=== PATIENT | male | born 1960 | race Caucasian/White ===

== ENCOUNTER → 2017-09-24 | Outpatient (CLI) | payer OTHER ==
[~2017-09-24] MED LIST: ADDERALL 20 MG20 M1 PO; ASPIR 8181 MG PO; ATIVAN0.5 MG PO; EFFIENT10 MG PO; KEFLEX500 MG PO; LIPITOR10 MG PO; MOBIC15 MG PO; NORCO 5-325 TA1 EACH PO
--- NOTE | 2017-09-24 16:50 | 2DMMODE ---
[place] [address] 2 D/M-MODE ECHOCARDIOGRAM Name: GUERA KHAN Room: [facility]#: [id number] Admission: 09/24/17 Attend Phys: Nba Matos Discharge: Date of : 64 Date of Service: 09/24/17 1649 Report #: [id number] THIS REPORT FOR: //name// APPROVED REPORT Study performed: 09/24/2017 10:07:08 EXAM: Comprehensive 2D, Doppler, and color-flow Echocardiogram Patient Location: Out-Patient Status: routine BSA: 2.07 HR: 71 bpm BP: 122/78 mmHg Other Information Study Quality: Good Indications CAD 2D Dimensions LVEF(%): 75.23 (>50%) IVSd: 12.73 (7-11mm) LVOT Diam: 20.79 (18-24mm) LVDd: 45.90 mm PWd: 11.21 (7-11mm) Ascending Ao: 34.34 (22-36mm) LVDs: 25.73 (25-40mm) Aortic Root: 34.73 mm Tolentino's LVEF: 75.23 % Volumes Left Atrial Volume (Systole) LA ESV Index: 21.00 mL/m2 Aortic Valve AoV Peak Tai.: 1.44 m/s AO Peak Gr.: 8.25 mmHg LVOT Max P.66 mmHg AO Mean Gr.: 4.24 mmHg LVOT Mean P.84 mmHg LVOT Max V: 0.96 m/s AO V2 VTI: 26.64 cm LVOT Mean V: 0.63 m/s BRADLY (VTI): 2.77 cm2 LVOT V1 VTI: 21.75 cm Mitral Valve E/A Ratio: 0.90 MV Decel. Time: 184.40 [place] [address] 2 D/M-MODE ECHOCARDIOGRAM Name: GUERA KHAN Room: [facility]#: [id number] Admission: 09/24/17 Attend Phys: Nba Matos Discharge: Date of : 64 Date of Service: 09/24/17 1649 Report #: [id number] MV E Max Tai.: 0.69 m/s MV PHT: 53.48 ms MVA (PHT): 4.11 cm2 TDI E/Lateral E': 6.27 E/Medial E': 8.63 Medial E' Tai.: 0.08 m/s Lateral E' Tai.: 0.11 m/s Pulmonary Valve PV Peak Tai.: 0.79 m/s PV Peak Gr.: 2.51 mmHg Tricuspid Valve TR Peak Gr.: 19.36 mmHg RVSP: 24.36 mmHg Left Ventricle The left ventricle is normal size. There is normal LV segmental wall motion. There is normal left ventricular wall thickness. Left ventricular systolic function is normal. The left ventricular ejection fraction is within the normal range. LVEF is 60%. The left ventricular diastolic function is normal. Right Ventricle The right ventricle is normal size. The right ventricular systolic function is normal. Atria The left atrium size is normal. The right atrium size is normal. Aortic Valve Mild aortic valve sclerosis. No aortic regurgitation is present. There is no aortic valvular stenosis. Mitral Valve The mitral valve is normal in structure. Mild mitral regurgitation. No evidence of mitral valve stenosis. Tricuspid Valve The tricuspid valve is normal in structure. Mild tricuspid regurgitation. The RVSP is _24.4 mmHg. Pulmonic Valve The pulmonary valve is normal in structure. There is no [place]mon[place] [address] 2 D/M-MODE ECHOCARDIOGRAM Name: GUERA KHAN Room: [facility]#: [id number] Admission: 09/24/17 Attend Phys: Nba Matos Discharge: Date of : 64 Date of Service: 09/24/17 1649 Report #: [id number] Great Vessels The aortic root is normal in size. IVC is normal in size and collapses with >50% inspiration Pericardium There is no pericardial effusion. <Conclusion> The left ventricle is normal size. There is normal left ventricular wall thickness. Left ventricular systolic function is normal. The left ventricular ejection fraction is within the normal range. LVEF is 60%. The left ventricular diastolic function is normal. The right ventricle is normal size. The left atrium size is normal. Mild aortic valve sclerosis. No aortic regurgitation is present. There is no aortic valvular stenosis. The mitral valve is normal in structure. Mild mitral regurgitation. The tricuspid valve is normal in structure. Mild tricuspid regurgitation. The RVSP is _24.4 mmHg. IVC is normal in size and collapses with >50% inspiration There is no pericardial effusion. There is normal LV segmental wall motion. <ELECTRONICALLY SIGNED> By: Eze Sevilla MD, FACC 09/24/17 1649 [id number] Eze Sevilla MD, FACC /INF
== END ==
LOC: M.CRD 09:47
DX: I25.10 Atherosclerotic heart disease of native coronary artery without angina pectoris (principal); Z95.5 Presence of coronary angioplasty implant and graft; Z88.8 Allergy status to other drugs, medicaments and biological substances

== ENCOUNTER 2018-05-07 17:53 | Emergency (ER) | payer OTHER ==
[~2018-05-07] VITALS: Ht 177.8 cm; Wt 97.5 kg
[2018-05-07 18:03] VITALS: BP 190/91
[2018-05-07] MEDS ORDERED: ZOLOFT25 MG PO (18:05)
[2018-05-07] MEDS ORDERED: IBUPROFEN 600600 M1 PO (18:31)
[2018-05-07] MEDS ORDERED: KEFLEX500 M1 PO (18:31)
== END 2018-05-07 18:56 | disposition home or self-care (01) ==
LOC: M.ERS 17:53
DX: S61.219A Laceration without foreign body of unspecified finger without damage to nail, initial encounter (principal); M19.90 Unspecified osteoarthritis, unspecified site; E78.00 Pure hypercholesterolemia, unspecified; Z90.49 Acquired absence of other specified parts of digestive tract; Z88.5 Allergy status to narcotic agent; Z91.013 Allergy to seafood; W26.8XXA Contact with other sharp object(s), not elsewhere classified, initial encounter; Y93.89 Activity, other specified; Y92.89 Other specified places as the place of occurrence of the external cause; Y99.8 Other external cause status

== ENCOUNTER → 2020-10-06 | Outpatient (CLI) | payer OTHER ==
[~2020-10-06] MED LIST changes: +IBUPROFEN 600600 M1 PO; +KEFLEX500 M1 PO; +ZOLOFT25 MG PO
[2020-10-07 14:07] LABS: C-PEPTIDE 18.7 ng/mL (1.1-4.4)
== END ==
LOC: M.LAB 11:16
PROVIDERS: ATTEND Family Medicine
DX: R73.03 Prediabetes (principal); D89.813 Graft-versus-host disease, unspecified